=== PATIENT | male | born 1985 | race Caucasian/White ===

== ENCOUNTER 2018-12-25 10:25 | Emergency (ER) | payer OTHER ==
[2018-12-25 10:29] VITALS: BP 138/83; PULSE 85; TEMP 98.4; BMI 29.7
[2018-12-25] MEDS ORDERED: NAPROXEN 500 MG TABLET (FP) PO ONE (11:55)
[2018-12-25] MEDS ORDERED: NAPROXEN 500 MG TABLET (FP) ONE (11:59)
--- NOTE | 2018-12-25 12:00 | PDOC ---
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 Denies numbness or tingling to hands or feet, no problems with bowel or bladder. States pain is primarily in the left upper gluteal area Occurred: reports: just prior to arrival, this morning Severity: reports: mild, moderate Pain Location: reports: back Method of Injury: Yes: unknown Loss of Consciousness: no loss of consciousness Associated Symptoms (Fall): denies symptoms, muscle spasms, trouble walking Past History - Travel Traveled outside of the country in the last 30 days: No Close contact w/someone who was outside of country & ill: No - Past Medical History Allergies/Adverse Reactions: Allergies Allergy/AdvReac Type Severity Reaction Status Date / Time No Known Allergies Allergy Verified 12/25/18 10:30 Home Medications: Ambulatory Orders No Home Medications 0 dose .ROUTE UTDICT 01/31/13 Cyclobenzaprine HCl 10 mg PO Q8H PRN #14 tablet 12/25/18 Naproxen [Naprosyn -] 500 mg PO BID #30 tablet 12/25/18 COPD: No - Suicide/Smoking/Psychosocial Hx Smoking Status: No Smoking History: Never smoked Number of Cigarettes Smoked Daily: 0 Information on smoking cessation initiated: No Hx Alcohol Use: No Drug/Substance Use Hx: No Review of Systems - Review of Systems Able to Perform ROS?: Yes Is the patient limited [place] proficient: Yes Constitutional: Yes: Symptoms Reported, See HPI, Malaise. No: Fever HEENTM: Yes: Symptoms Reported Respiratory: Yes: See HPI. No: Symptoms reported, Cough All Other Systems: Reviewed and Negative *Physical Exam - Vital Signs Last Vital Signs Temp Pulse Resp BP Pulse Ox 98.4 F 85 19 138/83 100 12/25/18 10:27 12/25/18 10:27 12/25/18 10:27 12/25/18 10:27 12/25/18 10:27 - Physical Exam General Appearance: Yes: Nourished, Appropriately Dressed, Apparent Distress, Mild Distress, Moderate Distress HEENT: positive: AMI, Normal ENT Inspection, Normal Voice, TMs Normal, Pharynx Normal Neck: positive: Supple. negative: Lymphadenopathy (R), Lymphadenopathy (L) Respiratory/Chest: positive: Lungs Clear, Normal Breath Sounds Gastrointestinal/Abdominal: positive: Soft Musculoskeletal: positive: Normal Inspection, Muscle Spasm (palp spasm felt at L1 through 5 on left side and above ischial spine, no true bone tenderness, unable to flex and extend due to the spasm and radiating pain. No bone tenderness crepitus or step-offs to vertebral spine.). negative: CVA Tenderness Extremity: positive: Normal Capillary Refill, Normal Inspection. negative: Normal Range of Motion, Tender Integumentary: positive: Normal Color, Dry, Warm Neurologic: positive: fuel manager II-XII NML intact, Fully Oriented, Alert, Normal Mood/ Affect, Normal Response, Motor Strength 5/5 Moderate Sedation - Procedure Monitoring Vital Signs: Procedure Monitoring Vital Signs Temperature 98.4 F 12/25/18 10:27 Pulse Rate 85 12/25/18 10:27 Respiratory Rate 19 12/25/18 10:27 Blood Pressure 138/83 12/25/18 10:27 O2 Sat by Pulse Oximetry (%) 100 12/25/18 10:27 Progress Note - Progress Note Progress Note: Low back strain, will treat with NSAIDs and cyclobenzaprine *DC/Admit/Observation/Transfer Diagnosis at time of Disposition: Low back sprain Qualifiers: Encounter type: initial encounter Qualified Code(s): S33.5XXA - Sprain of ligaments of lumbar spine, initial encounter - Discharge Dispostion Disposition: HOME Condition at time of disposition: Stable Decision to Admit order: No - Referrals Referrals: Gurmeet Sanches MD [Staff Physician] - - Patient Instructions Printed Discharge Instructions: DI for Back Strain or Sprain Additional Instructions: Rest, no heavy lifting or exercise until pain is resolved Hot soaks to neck and low back as often as possible/hot showers or Jacuzzis No massage or therapy until spasm is gone Continue Naprosyn 500 mg tablet, 1 tablet every 8 hours for the next 3 days then as needed for pain and swelling Cyclobenzaprine 1-10mg every 8 hours as needed for spasm If not significant improvement within 24 hours with medication and rest regime, followup with private physician for change in medications and /or therapy. - Post Discharge Activity Forms/Work/School Notes: Back to Work
== END 2018-12-25 12:10 | disposition home or self-care (01) ==
LOC: JERFT 10:25
DX: S33.5XXA Sprain of ligaments of lumbar spine, initial encounter (principal); Y35.891A Legal intervention involving other specified means, law enforcement official injured, initial encounter; Y93.89 Activity, other specified; Y92.89 Other specified places as the place of occurrence of the external cause; Y99.0 Civilian activity done for income or pay
CPT/HCPCS: 99281-25

== ENCOUNTER 2019-03-10 10:05 | Emergency (ER) | payer OTHER | END 2019-03-10 11:34 | disposition home or self-care (01) | LOC: JERFT 10:05 ==

== ENCOUNTER 2021-04-30 09:15 | Emergency (ER) | payer BC ==
[2021-04-30] MEDS ORDERED: IBUPROFEN 400 MG TABLET (FP) PO ONE ×2 (09:18→09:40)
[2021-04-30] MEDS ORDERED: LIDOCAINE 5% TOPICAL PATCH TP ONE (09:50)
[2021-04-30 09:55] VITALS: BP 140/104; PULSE 87; TEMP 97.6; BMI 28.3
[2021-04-30] MEDS ORDERED: LIDOCAINE 5% TOPICAL PATCH ONE (09:57)
[2021-04-30] MEDS ORDERED: LIDOCAINE PATCH REMOVAL MC SCH (22:00)
== END 2021-04-30 10:15 | disposition home or self-care (01) ==
LOC: FER 09:15
DX: M54.41 Lumbago with sciatica, right side (principal)
CPT/HCPCS: 99283-25